=== PATIENT | female | born 1945 | race Caucasian/White ===

== ENCOUNTER → 2018-11-23 | Outpatient (CLI) | payer MEDICARE, OTHER | LOC: LAB SHORT 17:18 → LAB 17:18 | DX: L08.9 Local infection of the skin and subcutaneous tissue, unspecified (principal); K13.0 Diseases of lips; D04.39 Carcinoma in situ of skin of other parts of face | CPT/HCPCS: 87070; 87205 ==

== ENCOUNTER → 2021-01-18 | Outpatient (CLI) | payer MEDICARE, OTHER | LOC: LAB 11:48 → LAB SHORT 11:48 | DX: D48.5 Neoplasm of uncertain behavior of skin (principal); L57.0 Actinic keratosis; Z88.1 Allergy status to other antibiotic agents | CPT/HCPCS: 88305 ==

== ENCOUNTER 2023-12-14 11:45 | Day surgery (SDC) | payer MEDICARE, OTHER ==
[~2023-12-14] VITALS: Ht 160 cm; Wt 65.2 kg
[2023-12-14] MEDS ORDERED: LATA.005SO (11:55)
[2023-12-14] MEDS ORDERED: EUTHYROX88 MCG (11:55)
[2023-12-14] MEDS ORDERED: Lisinopril2.5 MG (11:56)
[2023-12-14] MEDS ORDERED: MULTIPLE VITAM1 EACH (11:56)
[2023-12-14] MEDS ORDERED: CALCIUM CIT 311 EAC7 (11:56)
[2023-12-14] MEDS ORDERED: OMEP20ER (11:56)
[2023-12-14] MEDS ORDERED: LOVA40 (11:56)
[2023-12-14] MEDS ORDERED: propofoL 50 ML IV ONE (12:16)
[2023-12-14] MEDS ORDERED: Lactated Ringer's 1,000 ML IV ONE ×2 (12:17→12:24)
[2023-12-14 13:54] VITALS: BP 133/66
== END 2023-12-14 14:00 | disposition home or self-care (01) ==
LOC: ORSCSDS 11:45
PROVIDERS: Surgery
PROC: 0DJD8ZZ Inspection of Lower Intestinal Tract, Via Natural or Artificial Opening Endoscopic (ICD-10-PCS; principal; 2023-12-14 13:00)
DX: Z12.11 Encounter for screening for malignant neoplasm of colon (principal); R19.5 Other fecal abnormalities; K57.30 Diverticulosis of large intestine without perforation or abscess without bleeding; E03.9 Hypothyroidism, unspecified; I10 Essential (primary) hypertension; E78.5 Hyperlipidemia, unspecified; Z79.899 Other long term (current) drug therapy
CPT/HCPCS: J2704; J7120